=== PATIENT | female | born 1980 | race Caucasian/White ===

== ENCOUNTER 2020-03-31 19:34 | Emergency (ER) | payer BC ==
[~2020-03-31] VITALS: Ht 160 cm; Wt 79.0 kg
[2020-03-31] MEDS ORDERED: IV NORMAL SALINE 1,000ML 1,000 ML IV SCH (19:49)
--- NOTE | 2020-03-31 19:58 | PHYS DOC ---
General Adult EDM: Chief Complaint: ABDOMINAL PAIN HPI: HPI: Patient is a 39-year-old female who presents with complaint of lower abdominal pain for the last few days and has progressively been getting worse. Patient states the pain is worst on the left lower abdomen but states that it does radiate all the way across. She also indicates that hurts into her lower back. She denies any urinary discomfort. She does indicate that she has a history of kidney stones but cannot say that this is the same symptoms as when she had kidney stones in the past. She is not aware of any alleviating factors. [] Review of Systems: Review of Systems: Constitutional: Denies fever or chills Respiratory: Denies cough or shortness of breath Cardiovascular: Denies chest pain or edema GI: Complains of lower abdominal pain with nausea. Denies vomiting or diarrhea Neurologic: Denies headache, focal weakness or sensory changes Heart Score: Risk Factors: Risk Factors: DM, Current or recent (<one month) smoker, HTN, HLP, family hist ory of CAD, obesity. Risk Scores: Score 0 - 3: 2.5% MACE over next 6 weeks - Discharge Home Score 4 - 6: 20.3% MACE over next 6 weeks - Admit for Clinical Observation Score 7 - 10: 72.7% MACE over next 6 weeks - Early Invasive Strategies Physical Exam: PE: Constitutional: Well developed, well nourished, no acute distress, non-toxic appearance. [] Neck: Normal range of motion, no tenderness, supple, no stridor. [] Cardiovascular: Regular rate and rhythm [] Lungs & Thorax: Bilateral breath sounds clear to auscultation [] Abdomen: Bowel sounds normal, soft, with lower abdominal tenderness. [] Skin: Warm, dry, no erythema, no rash. [] Extremities: No tenderness, no cyanosis, no clubbing, ROM intact, no edema. [] Neurologic: Alert and oriented X 3, no focal deficits noted. [] EKG: EKG: [] Radiology/Procedures: Radiology/Procedures: [] Impressions: PROCEDURE: CT ABD PELV W/ IV CONTRST ONLY Examination: CT of the abdomen pelvis with IV contrast. HISTORY: History of lower abdominal pain, nausea COMPARISON: None available TECHNIQUE: Axial CT images of the abdomen pelvis were performed with IV contrast. Coronal and sagittal deformities are performed Exposure: One or more of the following individualized dose reduction techniques were utilized for this examination: 1. Automated exposure control 2. Adjustment of the mA and/or kV according to patient size 3. Use of iterative reconstruction technique FINDINGS: The bibasilar lungs are clear. No evidence of free air identified in the abdomen. The visualized liver, spleen are mildly enlarged. The adrenals grossly appears unremarkable. Cholecystectomy changes identified. The stomach is mildly distended. The visualized pancreas grossly appears unremarkable. The small bowel is nondilated. The appendix is normal. Feces and gas noted in the colon. There is mild thickened appearance of the wall of the rectum with surrounding mild fat stranding. Urinary bladder is mildly distended Bilateral kidneys enhance symmetrically. Punctate 2 mm calculi left kidney. Mild degenerative changes lumbar spine. IMPRESSION: 1. Mild thickened appearance of the wall of the rectum could reduce thickening to nondistention or mild proctitis. 2. Heterogeneous appearance of the uterus with small amount of fluid in the endometrium. Consider follow-up pelvic ultrasound. 3. Punctate 2 mm calculi left kidney. 4. Mild hepatosplenomegaly. 5. Cholecystectomy changes. Electronically signed by: Bandar Hu MD (03/31/2020 11:05 PM) [id number] Course & Med Decision Making: Course & Med Decision Making Pertinent Labs and Imaging studies reviewed. (See chart for details) [] Abeba Disclaimer: Abeba Disclaimer: This electronic medical record was generated, in whole or in part, using a voice recognition dictation system. Departure Departure: Impression: Primary Impression: Lower abdominal pain Disposition: 01 HOME/RESIDENCE PRIOR TO ADM Condition: STABLE Referrals: BRIAN ARREOLA MD (PCP) Patient Instructions: Abdominal Pain Scripts Tramadol Hcl (TRAMADOL HCL) 50 Mg Tablet 50 MG PO PRN Q6HRS PRN for PAIN, #12 TAB Prov: KRYS RAMIREZ Jr. DO 03/31/20 Ondansetron (ONDANSETRON ODT) 4 Mg Tab.rapdis 1 TAB PO PRN Q6-8HRS PRN for NAUSEA, #12 TAB Prov: KRYS RAMIREZ Jr. DO 03/31/20 Justification of Admission: Justification of Admission: Justification of Admission Dx: Comment: (Not applicable) KRYS RAMIREZ Jr. DO Mar 31, 2020 19:58
[2020-03-31] MEDS ORDERED: KETOROLAC 30 MG/ML VIAL. IVP ONE (20:00)
[2020-03-31] MEDS ORDERED: ONDANSETRON PF 4 MG/2 ML VIAL. IVP ONE (20:00)
[2020-03-31 20:28] LABS: BASO % 1 % (0-3); EOS % 0 % (0-3); HEMATOCRIT 39.3 % (36.0-47.0); HEMOGLOBIN 13.8 g/dL (12.0-15.5); LYMPH # 1.4 x10^3/uL (1.0-4.8); LYMPH % 24 % (24-48); MEAN CORPUSCULAR HEMOGLOBIN 32 pg (25-35); MEAN CORPUSCULAR HGB CONC 35 g/dL (31-37); MEAN CORPUSCULAR VOLUME 90 fL (79-100); MONO # 0.3 x10^3/uL (0.0-1.1); MONO % 5 % (0-9); NEUT # 4.2 x10^3uL (1.8-7.7); NEUT % 70 % (31-73); PLATELET COUNT 167 x10^3/uL (140-400); RED BLOOD COUNT 4.36 x10^6/uL (3.50-5.40); RED CELL DISTRIBUTION WIDTH 12.4 % (11.5-14.5)
[2020-03-31 20:40] LABS: BILIRUBIN,URINE NEG (NEG); CLARITY,URINE CLEAR; COLOR,URINE YELLOW; GLUCOSE,URINE NEG (NEG)
[2020-03-31 20:41] LABS: BACTERIA,URINE MOD /HPF (0-FEW); NITRITE,URINE NEG (NEG); SQUAMOUS EPITHELIAL CELL,UR MOD /LPF; UROBILINOGEN,URINE 0.2 mg/dL (0.2 mg/dL)
[2020-03-31 21:30] VITALS: BP 122/68
[2020-03-31 21:34] LABS: CALCIUM 8.4 mg/dL (8.5-10.1); CREATININE 0.7 mg/dL (0.6-1.0); GFR 92.7
[2020-03-31 21:41] LABS: ALBUMIN 3.6 g/dL (3.4-5.0); ALBUMIN/GLOBULIN RATIO 1.1 (1.0-1.7); TOTAL BILIRUBIN 0.4 mg/dL (0.2-1.0); TOTAL PROTEIN 6.9 g/dL (6.4-8.2)
[2020-03-31] MEDS ORDERED: CONTRAST GIVEN MC PRN (22:15)
[2020-03-31] MEDS ORDERED: IOHEXOL 300 MG/ML 75 ML VIAL. IV ONE (22:30)
--- NOTE | 2020-03-31 23:08 | RAD ---
Examination: CT of the abdomen pelvis with IV contrast. HISTORY: History of lower abdominal pain, nausea COMPARISON: None available TECHNIQUE: Axial CT images of the abdomen pelvis were performed with IV contrast. Coronal and sagittal deformities are performed Exposure: One or more of the following individualized dose reduction techniques were utilized for this examination: 1. Automated exposure control 2. Adjustment of the mA and/or kV according to patient size 3. Use of iterative reconstruction technique FINDINGS: The bibasilar lungs are clear. No evidence of free air identified in the abdomen. The visualized liver, spleen are mildly enlarged. The adrenals grossly appears unremarkable. Cholecystectomy changes identified. The stomach is mildly distended. The visualized pancreas grossly appears unremarkable. The small bowel is nondilated. The appendix is normal. Feces and gas noted in the colon. There is mild thickened appearance of the wall of the rectum with surrounding mild fat stranding. Urinary bladder is mildly distended Bilateral kidneys enhance symmetrically. Punctate 2 mm calculi left kidney. Mild degenerative changes lumbar spine. IMPRESSION: 1. Mild thickened appearance of the wall of the rectum could reduce thickening to nondistention or mild proctitis. 2. Heterogeneous appearance of the uterus with small amount of fluid in the endometrium. Consider follow-up pelvic ultrasound. 3. Punctate 2 mm calculi left kidney. 4. Mild hepatosplenomegaly. 5. Cholecystectomy changes. Electronically signed by: Bandar Hu MD (03/31/2020 11:05 PM) [id number]
[2020-03-31] MEDS ORDERED: TRAM50TA PO (23:16)
[2020-03-31] MEDS ORDERED: ONDA4TAB12 PO (23:16)
== END 2020-03-31 23:40 | disposition home or self-care (01) ==
LOC: ER 19:34
DX: R10.32 Left lower quadrant pain (principal); R11.0 Nausea; Z87.442 Personal history of urinary calculi
CPT/HCPCS: 36415; 74177; 80053; 81001; 83690; 85025; 87086; 96374; 96375; 99285; J1885; J2405; J3010; J7030; Q9967; 99284-25

== ENCOUNTER 2020-07-26 06:47 | Emergency (ER) | payer BC ==
[~2020-07-26] VITALS: Ht 157.5 cm; Wt 78.0 kg
[~2020-07-26 06:47] MED LIST: ONDA4TAB12 PO; TRAM50TA PO
[2020-07-26 07:17] VITALS: BP 114/77
--- NOTE | 2020-07-26 07:29 | PHYS DOC ---
Past History Past Medical History: Depression, GERD, Migraines Additional Past Medical Histor: ADHD Past Surgical History: Cholecystectomy, Tonsillectomy, Tubal ligation, Other Additional Past Surgical Histo: Endometrial ablation, knee scopes right knee, deviated deptum repair Alcohol Use: None General Adult EDM: Chief Complaint: HEADACHE HPI: HPI: Patient is a 40-year-old female coming in for 2 days of intractable headache. Says it started gradually while she was at work and is not responding to her prescribed medications. Is taking Aimovig and Fioricet. Her medications help some but headache returns. No vision changes but has photophobia. No recent trauma or illness. Headache is pressure and throbbing on the left frontal area. Review of Systems: Review of Systems: Constitutional: Denies fever or chills Eyes: Denies change in visual acuity, has photophobia HENT: Denies nasal congestion or sore throat Respiratory: Denies cough or shortness of breath Cardiovascular: Denies chest pain or edema GI: Denies abdominal pain, nausea, vomiting, bloody stools or diarrhea : Denies dysuria Musculoskeletal: Denies back pain or joint pain Integument: Denies rash Neurologic: Frontal headache headache, without focal weakness or sensory changes Endocrine: Denies polyuria or polydipsia Lymphatic: Denies swollen glands Psychiatric: Denies depression or anxiety Heart Score: Risk Factors: Risk Factors: DM, Current or recent (<one month) smoker, HTN, HLP, family history of CAD, obesity. Risk Scores: Score 0 - 3: 2.5% MACE over next 6 weeks - Discharge Home Score 4 - 6: 20.3% MACE over next 6 weeks - Admit for Clinical Observation Score 7 - 10: 72.7% MACE over next 6 weeks - Early Invasive Strategies Current Medications: Current Meds: Current Medications Medications (Trade) Dose Ordered Sig/Nyla Start Time Stop Time Status Last Admin Dose Admin Diphenhydramine HCl (Benadryl) 50 mg 1X ONCE 07/26/20 07:30 07/26/20 07:31 UNV Ketorolac Tromethamine (Toradol Im) 60 mg 1X ONCE 07/26/20 07:30 07/26/20 07:31 UNV Metoclopramide HCl (Reglan Vial) 10 mg 1X ONCE 07/26/20 07:30 07/26/20 07:31 UNV Allergies: Allergies: Allergies Coded Allergies Type Severity Reaction Last Updated Verified acetaminophen Allergy Mild itching 03/31/20 Yes oxycodone Allergy Mild itching 07/26/20 Yes Physical Exam: PE: Constitutional: Well developed, well nourished, no acute distress, non-toxic appearance. [] HENT: Normocephalic, atraumatic, bilateral external ears normal, oropharynx moist, no oral exudates, nose normal. [] Eyes: PERRLA, EOMI, conjunctiva normal, no discharge. [] Neck: Normal range of motion, no tenderness, supple, no stridor. [] Cardiovascular:Heart rate regular rhythm, no murmur [] Lungs & Thorax: Bilateral breath sounds clear to auscultation [] Abdomen: Bowel sounds normal, soft, no tenderness, no masses, no pulsatile masses. [] Skin: Warm, dry, no erythema, no rash. [] Back: No tenderness, no CVA tenderness. [] Extremities: No tenderness, no cyanosis, no clubbing, ROM intact, no edema. [] Neurologic: Alert and oriented X 3, normal motor function, normal sensory function, no focal deficits noted. [] Psychologic: Affect normal, judgement normal, mood normal. [] Current Patient Data: Vital Signs: Vital Signs Date Time Temp Pulse Resp B/P (MAP) Pulse Ox O2 Delivery O2 Flow Rate FiO2 07/26/20 07:17 114/77 (89) 07/26/20 07:04 98.1 68 14 100 EKG: EKG: [] Radiology/Procedures: Radiology/Procedures: [] Course & Med Decision Making: Course & Med Decision Making Discussed treatment options, no red flag symptoms identified on history and physical, she would like IM medications Dragon Disclaimer: Abeba Disclaimer: This electronic medical record was generated, in whole or in part, using a voice recognition dictation system. Departure Departure: Impression: Primary Impression: Headache Disposition: 01 DC HOME SELF CARE/HOMELESS Condition: STABLE Referrals: BRIAN ARREOLA MD (PCP) Patient Instructions: General Headache Without Cause HERO MIRELES MD Jul 26, 2020 07:29
[2020-07-26] MEDS ORDERED: METOCLOPRAMIDE HCL 10 MG/2 ML VIAL. IM ONE (08:00)
[2020-07-26] MEDS ORDERED: diphenhydrAMINE 50 MG/ML VIAL IM ONE (08:00)
[2020-07-26] MEDS ORDERED: KETOROLAC 60 MG/2 ML VIAL. IM ONE (08:00)
== END 2020-07-26 08:00 | disposition home or self-care (01) ==
LOC: ER 06:47
DX: G43.909 Migraine, unspecified, not intractable, without status migrainosus (principal); K21.9 Gastro-esophageal reflux disease without esophagitis; Z88.5 Allergy status to narcotic agent; Z88.6 Allergy status to analgesic agent
CPT/HCPCS: 96372; 99284; J1200; J1885; J2765

== ENCOUNTER 2020-09-05 20:53 | Emergency (ER) | payer BC ==
[~2020-09-05] VITALS: Ht 157.5 cm; Wt 78.0 kg
[2020-09-05 20:55] VITALS: BP 121/82
[2020-09-05] MEDS ORDERED: AZEL137S3 NS (21:13)
--- NOTE | 2020-09-05 21:13 | PHYS DOC ---
Past History Past Medical History: Depression, GERD, Migraines Additional Past Medical Histor: ADHD Past Surgical History: Cholecystectomy, Tonsillectomy, Tubal ligation, Other Additional Past Surgical Histo: Endometrial ablation, knee scopes right knee, deviated deptum repair Alcohol Use: None General Adult EDM: Chief Complaint: HEADACHE HPI: HPI: Patient is a 40-year-old female coming in for frontal headache and nasal congestion for the past couple of days. Has not taken anything at home. But states she has been using Afrin at least once a day for the past month. Has a history of migraines but says this headache is different. Was slow in onset. Was diagnosed with COVID-19 15 days ago but states she has been feeling better. Denies any fevers, cough, sore throat, neck pain or stiffness. Denies any new exposures to Covid. No GI complaints. Review of Systems: Review of Systems: Constitutional: Denies fever or chills Eyes: Denies change in visual acuity HENT: Nasal congestion but no sore throat Respiratory: Denies cough or shortness of breath Cardiovascular: Denies chest pain or edema GI: Denies abdominal pain, nausea, vomiting, bloody stools or diarrhea : Denies dysuria Musculoskeletal: Denies back pain or joint pain Integument: Denies rash Neurologic: Has frontal headache but denies focal weakness or sensory changes Endocrine: Denies polyuria or polydipsia Lymphatic: Denies swollen glands Psychiatric: Denies depression or anxiety Allergies: Allergies: Allergies Coded Allergies Type Severity Reaction Last Updated Verified oxycodone Allergy Mild itching 07/26/20 Yes Physical Exam: PE: Constitutional: Well developed, well nourished, no acute distress, non-toxic appearance. [] HENT: Normocephalic, atraumatic, bilateral external ears normal, oropharynx moist, no oral exudates, nose normal. [] Tenderness over frontal sinus, no tenderness over maxillary sinuses Eyes: PERRLA, EOMI, conjunctiva normal, no discharge. [] Neck: Normal range of motion, no tenderness, supple, no stridor. [] No rigidity or tenderness Cardiovascular:Heart rate regular rhythm, no murmur [] Lungs & Thorax: Bilateral breath sounds clear to auscultation [] Abdomen: Bowel sounds normal, soft, no tenderness, no masses, no pulsatile masses. [] Skin: Warm, dry, no erythema, no rash. [] Back: No tenderness, no CVA tenderness. [] Extremities: No tenderness, no cyanosis, no clubbing, ROM intact, no edema. [] Neurologic: Alert and oriented X 3, normal motor function, normal sensory function, no focal deficits noted. [] Psychologic: Affect normal, judgement normal, mood normal. [] Current Patient Data: Vital Signs: Vital Signs Date Time Temp Pulse Resp B/P (MAP) Pulse Ox O2 Delivery O2 Flow Rate FiO2 09/05/20 20:55 98.4 79 20 121/82 (95) 98 Room Air EKG: EKG: [] Radiology/Procedures: Radiology/Procedures: [] Heart Score: Risk Factors: Risk Factors: DM, Current or recent (<one month) smoker, HTN, HLP, family history of CAD, obesity. Risk Scores: Score 0 - 3: 2.5% MACE over next 6 weeks - Discharge Home Score 4 - 6: 20.3% MACE over next 6 weeks - Admit for Clinical Observation Score 7 - 10: 72.7% MACE over next 6 weeks - Early Invasive Strategies Course & Med Decision Making: Course & Med Decision Making Vital signs stable, discussed with patient discontinuing Afrin. [] Dragon Disclaimer: Dragon Disclaimer: This electronic medical record was generated, in whole or in part, using a voice recognition dictation system. Departure Departure: Impression: Primary Impression: Frontal headache Disposition: 01 DC HOME SELF CARE/HOMELESS Condition: STABLE Referrals: BRIAN ARREOLA MD (PCP) Patient Instructions: Sinus Headache, [id number] Additional Instructions: Discontinue Afrin gradually, begin taking prescribed nasal spray and Flonase. Also take Mucinex (guaifenesin) with increased water intake Scripts Azelastine Hcl (AZELASTINE HCL) 137 Mcg/0.137 Ml Deweese.pump 2 SPR NS BID for congestion for 30 Days, #30 ML 0 Refills Prov: HERO MIRELES MD 09/05/20 HERO MIRELES MD Sep 05, 2020 21:13
[2020-09-05] MEDS ORDERED: KETOROLAC 60 MG/2 ML VIAL. IM ONE (21:15)
[2020-09-05] MEDS ORDERED: ONDANSETRON ODT 4 MG TAB.RAPDIS ONE (21:16)
[2020-09-05] MEDS ORDERED: ONDANSETRON ODT 4 MG TAB.RAPDIS PO ONE (21:30)
== END 2020-09-05 21:35 | disposition home or self-care (01) ==
LOC: ER 20:53
DX: G43.909 Migraine, unspecified, not intractable, without status migrainosus (principal); R09.81 Nasal congestion; F32.9 Major depressive disorder, single episode, unspecified; K21.9 Gastro-esophageal reflux disease without esophagitis; Z90.49 Acquired absence of other specified parts of digestive tract; Z90.89 Acquired absence of other organs; Z98.51 Tubal ligation status; Z98.890 Other specified postprocedural states; Z88.5 Allergy status to narcotic agent
CPT/HCPCS: 96372; 99283; J1885; Q0162